=== PATIENT | male | born 1940 | race African-American/Black ===

== ENCOUNTER 2016-08-16 13:30 | Inpatient (IN) ==
--- NOTE | 2016-08-16 13:56 | Emergency Department Note ---
Pramod Giron Brooke, am scribing for, and in the presence of, Hayes Woods MD 13:46 . Peggy Giron James D, MD, personally performed the services described in this documentation, ascribed by Mckenzie Benavidez in my presence, and it is both accurate and complete [id number] . Arrival - Arrival Chief Complaint: Altered Mental Status ED Nursing Triage Note: c/o pt being confused since he woke up this am. pt has dementia Mode of Arrival: Stretcher Limitations: Altered Mental Status Source: Patient, EMS, RN Notes Reviewed Time Seen by Provider: 08/16/16 13:41 - History of Present Illness HPI Narrative: Patient is a 76 year old male brought into the ED by EMS with c/o altered mental status. Patient says he does not know why he is here. He knows his name and is able to recall his date. Patient says that the month is currently November and the year is 1996. EMS reports that says he has been confused all morning. The is supposed to be coming to the ED. Patient does not have any complaints. He denies having any abdominal pain or shortness of breath. Patient has PMHx of HTN and dementia. Home Medications: Home Medications Medication Instructions Recorded Confirmed Type Aspirin EC Tab 81 mg PO DAILY 08/16/16 08/16/16 History Carbidopa/Levodopa 25-250 [Sinemet 1 tablet PO TID PRN 08/16/16 08/16/16 History 25-250] Donepezil [Aricept] 10 mg PO DAILY 08/16/16 08/16/16 History Metoprolol Tartrate Tab [Lopressor 25 mg PO DAILY 08/16/16 08/16/16 History Tab] Ropinirole HCl 0.25 mg PO TID 08/16/16 08/16/16 History Review of System - Review of System ROS unobtainable: due to mental status - Review of System Constitutional: Absent: fever Respiratory: Absent: respiratory distress Gastrointestinal: Absent: abdominal pain Neurological: Present: confusion Medical,Surgical,& Family Hx - Medical History Cardio: History of: Hypertension Neurology: History of: Dementia, Parkinson's Disease - Social History Smoking Status: Never smoker Frequency of Alcohol Use: None Type of Drug Use: None Exam Vital Signs: Vital Signs Temperature 97.6 F 08/16/16 13:35 Pulse Rate 99 H 08/16/16 13:35 Respiratory Rate 18 08/16/16 13:35 Blood Pressure 154/83 08/16/16 13:35 O2 Sat by Pulse Oximetry 99 08/16/16 13:35 GENERAL: This is a chronically ill-appearing black male in no apparent distress. VITAL SIGNS: Reviewed HEENT: Head is atraumatic and normocephalic. Pupils are equal round react to light. Extraocular movements are intact. Oropharynx is benign with moist mucous membranes. NECK: Neck is soft and supple without tenderness. There are no masses. There is no lymphadenopathy. LUNGS: Lungs are clear to auscultation. Chest rises symmetrically. There is no chest wall tenderness. CV: Heart is regular rate and rhythm without murmurs rubs or gallops. ABDOMEN: Abdomen is soft, nontender to palpation. There are no abdominal abnormal masses palpated. There is no organomegaly. Bowel sounds are present and active. SKIN: Skin is warm and dry. No rash. EXTREMITIES: Patient has full range of motion without tenderness. There is no pedal edema. NEUROLOGIC: Awake, disoriented to time and place. Cranial nerves II through XII are grossly intact. Motor is 5 over 5 in all extremities bilaterally. Results - Labs CBC & BMP: 08/16/16 14:52 08/16/16 14:52 Lab Results: I have reviewed the patients labs - EKG EKG results: interpreted by ERMD - Impressions EKG: Normal sinus rhythm with rate of 63, nonspecific ST-T wave changes, normal axis. - Diagnostic Findings Procedure: Chest x-ray: image reviewed by me (No infiltrates, no pleural effusions.), CT: image reviewed by me (CT head: No acute intracranial lesion or hemorrhage.) Disposition Clinical Impression: Altered mental status Case discussed with: patient
--- NOTE | 2016-08-16 14:06 | CT Report ---
Referring physician: Hayes Woods Exam: CT brain without contrast Date: 08/16/2016 Comparison: 08/18/2010 Reason: Alteration of consciousness Technique: Axial images of the head were obtained without the use of contrast. Total DLP was 1053.4 mGy*cm. Findings: No hydrocephalus or midline shift is present. Cavum interpositum. There is no evidence of recent intracranial hemorrhage or abnormal mass effect. Progressive atrophy and cerebral hypodensities. It is difficult to exclude interval ischemic infarcts in the centrum semiovale location especially on the right. The osseous structures appear intact. The mastoid air cells and visualized paranasal sinuses are clear. Impression: Progressive atrophy and microvascular disease. These findings make it difficult to exclude interval infarcts in the centrum semiovale location especially on the right. The CT exam was performed using one or more of the following dose reduction techniques: Automated exposure control and adjustment of the mA and/or kV according to patient size. PROCEDURE INTERPRETED AT [facility] DEPARTMENT OF RADIOLOGY Final Report Signed by: Dr. Christine Ku
--- NOTE | 2016-08-16 14:10 | XRay Report ---
Exam: XR chest 1V portable Date: 08/16/2016 1:46 PM Indication: Altered mental status Comparison: 08/18/2010 Technical: AP portable Findings: Lateral marginal osteophytes are present. External cardiac leads are present. Mediastinum and bony structures reveal no acute findings. No obvious infiltrates or effusions. Impression: 1. Degenerative spondylosis change thoracic spine without acute cardiopulmonary pathology PROCEDURE INTERPRETED AT [facility] DEPARTMENT OF RADIOLOGY Final Report Signed by: Dr. Sea Noguera
--- NOTE | 2016-08-16 14:36 | EKG Report ---
Stationary ECG Study [facility] ER Test Date: 08/16/2016 1:52:51 PM Pat Name: [facility] Department: Room: Gender: M Pharmacy Delivery Driver: : 1940 Requested by: Hayes Valente Order Number: [id number] Reading MD: WILBUR ROCHE Intervals [place] Rate: 63 P: 68 OH: 138 QRS: 30 QRSD: 88 T: 7 QT: 420 QTc: 428 Interpretive Statements SINUS RHYTHM NONSPECIFIC T-WAVE ABNORMALITY Electronically Signed On 08-16-16 18:35:46 CDT by WILBUR ROCHE [email or web address]
[2016-08-16 15:05] LABS: Basophils % 0.1 % (0.0-0.8); Eosinophils % 0.1 % (0.00-10.9); Hematocrit 44.8 VOL% (42.0-52.0); Hemoglobin 15.1 GM/DL (14.0-18.0); Immature Granulocytes % 0.4 %; Immature Granulocytes Absolute 0.03 #; Lymphocytes # 1.2 10*3/uL (1.4-4.0); Mean Corpuscular HGB Conc 33.7 GM/DL (32-36); Mean Corpuscular Hemoglobin 32 PG (27-34); Mean Corpuscular Volume 93.9 FL (87-102); Mean Platelet Volume 10.3 FL (9.6-12.0); Monocytes # 0.5 10*3/uL (0.11-0.8); Monocytes % 7.4 % (1.7-12.7); Neutrophils # 5.1 10*3/uL (1.4-7.4); Platelet Count 139 T/CUMM (130-400); Red Blood Count 4.77 MC/CUMM (3.8-5.5); White Blood Count 6.9 T/CUMM (4-12)
[2016-08-16 15:10] LABS: Apearance,Urine CLEAR (Clear); Bilirubin,Urine Negative (Negative); Blood, Urine Moderate mg/dL (Negative); Glucose,Urine (UA) Negative (Negative); Ketones,Urine 5 mg/dL (Negative); Mucus,Urine Many /LPF (Occasional); Nitrite,Urine Negative (Negative); Protein,Urine Negative; RBC,Urine 7 /HPF (0-4); Squamous Epithelial Cell,Urine Occasional /HPF (0-10); Urine Color Yellow (Yellow); Urine Specific Gravity 1.019 (1.001-1.035); Urine Urobilinogen < 2.0 EU/DL (0.2-1.0); WBC,Urine <1 /HPF (0-6)
[2016-08-16 15:15] LABS: INR 1.1; PT Patient Result 12.2 SECS; Partial Thromboplastin Time 26.8 SECS (0-40)
[2016-08-16 15:41] LABS: Alanine Aminotransferase < 6 U/L (16-61); Albumin 3.7 G/DL (3.4-5.0); Alkaline Phosphatase 76 U/L (45-117); Aspartate Amino Transferase 16 U/L (0-37); Blood Urea Nitrogen 11 MG/DL (7-18); Calcium 8.5 MG/DL (8.5-10.1); Glucose 111 MG/DL (74-106); Osmolality,Calculated 282.1 MOS/KG (273-304); Potassium 3.8 MMOL/L (3.5-5.1); Sodium 142 MMOL/L (136-145); Total Protein 6.8 G/DL (6.4-8.3)
--- NOTE | 2016-08-16 16:26 | Event Note ---
Mr. olson is a 76-year-old male with dementia who presents with altered mental status. Patient's workup has been negative thus far. Will admit him to observation and obtain an MRI of his brain. Patient has no weakness however will consult PT and social work.
--- NOTE | 2016-08-16 16:40 | Hospitalist History & Physical ---
Assessment and Plan (1) Altered mental status Status: Acute Assessment and plan: We will admit. Start fluids, monitor blood pressure, and obtain MRI in AM. Current Visit: Yes History of Present Illness Chief complaint: altered mental status History of present illness: This is a very poor and unfortunate 76 chronically ill 76 year old male that presented to the ED at [facility] this afternoon for evaluation of altered mental status. He has a medical condition significant for hypertension, Parkinson's disease and dementia. The patient is altered at the time of interview; his is at bedside to serve as historian. Apparently, the notice the change in mental status this morning during breakfast when he refused his meal. She reports that he in normally verbal and appropriate for the most part. She reports that he became non-verbal and began "staring into space" when she talked to him. She felt that the changes were acute and she brought him to the ED for further evaluation. At the time of ED presentation, he remained altered; however more verbal. When asked about current location; he states that he in in "[place]". Labs were obtained which were essentially unremarkable. CT head showed no acute intracrainal processes. After brief discussion with Dr. Woods and Dr. Quiñonez, the patient will be admitted to the hospitalist service for further evaluation. Home Medications Medication Instructions Recorded Confirmed Type Aspirin EC Tab 81 mg PO DAILY 08/16/16 08/16/16 History Carbidopa/Levodopa 25-250 [Sinemet 1 tablet PO TID PRN 08/16/16 08/16/16 History 25-250] Donepezil [Aricept] 10 mg PO DAILY 08/16/16 08/16/16 History Metoprolol Tartrate Tab [Lopressor 25 mg PO DAILY 08/16/16 08/16/16 History Tab] Ropinirole HCl 0.25 mg PO TID 08/16/16 08/16/16 History Medical,Surgical,& Family Hx - Medical History Cardio: History of: Hypertension Neurology: History of: Dementia, Parkinson's Disease - Social History Smoking Status: Never smoker Frequency of Alcohol Use: None Type of Drug Use: None ROS unobtainable: due to mental status Exam - Constitutional Vitals: Period Temp Pulse Resp BP Sys/Jreez Pulse Ox Last 24 Hr 97.6 F-97.6 F 99-99 18-20 154-154/83-83 99 General appearance: normal weight, no acute distress - Head Head exam: Present: normal inspection, normocephalic, atraumatic - Eye Eye exam: Present: EOMI. Absent: conjunctival injection, nystagmus Pupils: Present: NAHOMY, normal accommodation - ENT ENT exam: Present: normal exam, normal external ear exam, normal oropharynx - Neck Neck exam: Present: normal inspection. Absent: lymphadenopathy, meningismus, tenderness, thyromegaly - Respiratory Respiratory exam: Present: clear to auscultation bilaterally. Absent: rales, rhonchi, stridor, wheezes - Cardiovascular Cardiovascular exam: Present: regular rate and rhythm. Absent: carotid bruit, diastolic murmur, gallop, JVD, rubs, systolic murmur - GI/Abdominal GI/Abdominal exam: Present: normal bowel sounds, soft. Absent: firm, guarding, tenderness - Extremities Exam Extremities exam: Present: normal inspection, normal capillary refill, full ROM - Back Exam Back exam: Present: normal inspection - Neurological Exam Neurological exam: Present: altered (oriented to self only), other (fine tremors noted) - Psychiatric Psychiatric exam: Present: flat affect - Skin Skin exam: Present: normal color, warm, dry Results - Labs CBC & BMP: 08/16/16 14:52 08/16/16 14:52 Lab Results: I have reviewed the past 24 hour labs
[2016-08-16] MEDS ORDERED: ACETAMINOPHEN 325 MG TABLET PO PRN (18:55)
[2016-08-16] MEDS ORDERED: ONDANSETRON 4 MG/2 ML VIAL IV PRN (18:55)
[2016-08-16] MEDS: SODIUM CHLORIDE 0.9% 1,000 ML IV SCH (19:50)
--- NOTE | 2016-08-16 21:23 | Ultrasound Report ---
Carotid artery ultrasound Indication: Altered mental status Comparison: None available Color Doppler flow and spectral analysis was performed. Findings: Minimal amount of atherosclerotic plaque is present in both proximal internal carotid arteries. The peak systolic velocity in the right is 66 cm/s . Ratio of flow is 0.54. The peak systolic velocity in the left is 63 cm/s . Ratio of flow is 0.67 Bilateral antegrade vertebral flow is seen. Impression: No evidence of hemodynamically significant stenosis is seen, 0-49% estimated stenosis. Consensus conference on the carotid ultrasound criteria used. Ultrasound images were captured and stored. PROCEDURE INTERPRETED AT [facility] DEPARTMENT OF RADIOLOGY Final Report Signed by: Dr. Alvarez Lopez
[2016-08-16] MEDS: CARBIDOPA/LEVODOPA 25-250 MG TABLET PO SCH (21:36)
[2016-08-16] MEDS: rOPINIRole 0.25 MG TABLET PO SCH (21:36)
[2016-08-17] MEDS: hydrALAZINE 20 MG/1 ML VIAL IV PRN ×2 (01:38→09:05)
[2016-08-17] MEDS: SODIUM CHLORIDE 0.9% 1,000 ML IV SCH (04:00)
[2016-08-17 07:24] LABS: Basophils % 0.3 % (0.0-0.8); Eosinophils % 0.7 % (0.00-10.9); Hematocrit 44.4 VOL% (42.0-52.0); Immature Granulocytes % 0.2 %; Immature Granulocytes Absolute 0.01 #; Lymphocytes # 1.6 10*3/uL (1.4-4.0); Lymphocytes % 26.9 % (21.2-54.2); Mean Corpuscular HGB Conc 33.8 GM/DL (32-36); Mean Corpuscular Hemoglobin 31 PG (27-34); Mean Corpuscular Volume 92.9 FL (87-102); Mean Platelet Volume 11.5 FL (9.6-12.0); Monocytes # 0.6 10*3/uL (0.11-0.8); Monocytes % 9.6 % (1.7-12.7); Neutrophils # 3.8 10*3/uL (1.4-7.4); Neutrophils % 62.3 % (38.7-73.9); Platelet Count 124 T/CUMM (130-400); Red Blood Count 4.78 MC/CUMM (3.8-5.5); Red Cell Distribution Width 13.9 % (9.3-17.3)
[2016-08-17 07:56] LABS: Alanine Aminotransferase < 6 U/L (16-61); Albumin 3.4 G/DL (3.4-5.0); Alkaline Phosphatase 67 U/L (45-117); Aspartate Amino Transferase 18 U/L (0-37); Blood Urea Nitrogen 8 MG/DL (7-18); Calcium 8.6 MG/DL (8.5-10.1); Cholesterol 164 MG/DL (50-200); Glucose 78 MG/DL (74-106); HDL Cholesterol 77 MG/DL (40-60); Magnesium 2.2 MG/DL (1.8-2.4); Osmolality,Calculated 282.8 MOS/KG (273-304); Potassium 4.4 MMOL/L (3.5-5.1); Risk Ratio 2.13; Sodium 144 MMOL/L (136-145); Total Protein 6.4 G/DL (6.4-8.3); Triglycerides 69 MG/DL (2-150); VLDL CHOLESTEROL 13.8 MG/DL
[2016-08-17] MEDS: CARBIDOPA/LEVODOPA 25-250 MG TABLET PO SCH ×3 (09:05→20:59)
[2016-08-17] MEDS: DONEPEZIL 10 MG TABLET PO SCH (09:05)
[2016-08-17] MEDS: PANTOPRAZOLE 40 MG TABLET PO SCH (09:05)
[2016-08-17] MEDS: rOPINIRole 0.25 MG TABLET PO SCH ×3 (09:05→20:59)
[2016-08-17] MEDS: METOPROLOL TARTRATE 25 MG TABLET PO SCH (09:05)
[2016-08-17] MEDS: ASPIRIN EC 81 MG TABLET PO SCH (09:05)
[2016-08-17] MEDS ORDERED: LORazepam 2 MG/1 ML VIAL IV ONE (14:30)
--- NOTE | 2016-08-17 15:22 | Hospitalist Progress Note ---
<Aleyda Wooten - Last Filed: 08/17/16 15:20> Assessment and Plan - Time spent with patient Time spent with patient: Less than 30 minutes (1) Parkinsons disease Status: Acute Assessment and plan: Mr. olson is a 76-year-old -[place] male with history of Parkinson's dementia and hypertension admitted by hospitalist service with altered mental status. Patient's chest x-ray, CT the head, and urine are all negative. Patient is scheduled to undergo MRI of the brain at [address] Blackmon will see and examine the patient and further recs to follow. Hypertension--patient's home medicine of metoprolol has been restarted and he has Apresoline as needed ordered. His blood pressures are stable at this time. Parkinson's/dementia--patient is on carbidopa/levodopa, Aricept and Requip for home meds and these have been restarted. Altered mental status--MRI is pending Current Visit: Yes (2) Dementia Status: Acute Current Visit: Yes (3) Hypertension Status: Acute Current Visit: Yes (4) Altered mental status Status: Acute Current Visit: Yes Hospitalist: Subjective Interval history: Patient lying comfortably in bed. His daughter is present. Patient and daughter both think that he is better than he was yesterday but he still not back at baseline. MRI is scheduled for 330. He has no complaints otherwise. Exam - Constitutional Vitals: Period Temp Pulse Resp BP Sys/Jerez Pulse Ox Last 24 Hr 97.3 F-97.8 F 49-70 15-24 112-193/62-114 93-100 Exam: 76-year-old -[place] male, no acute distress, alert though somewhat confused Chest clear CV regular rate and rhythm Abdomen soft and nontender Extremities with no edema Results - Labs CBC & BMP: 08/17/16 06:33 08/17/16 06:33 Lab Results: I have reviewed the past 24 hour labs - Diagnostic Findings Procedure: Ultrasound: report reviewed by me (Carotid Doppler showed no evidence of hemodynamically significant stenosis) Quality Measures - VTE Contraindication to Pharmacological VTE Prophylaxis: High Risk of Bleeding <Tasha Blackmon - Last Filed: 08/17/16 19:41> Hospitalist: Subjective Interval history: Patient seen. No new issues. Plan Will dc IVF BMP, CBC yamile Exam - Constitutional Vitals: Period Temp Pulse Resp BP Sys/Jerez Pulse Ox Last 24 Hr 97.3 F-97.8 F 50-70 19-22 112-190/62-114 93-100 Results - Labs CBC & BMP: 08/17/16 06:33 08/17/16 06:33
--- NOTE | 2016-08-17 16:33 | Magnetic Resonance Report ---
Exam: MR head/brain wo con Date: 08/17/2016 1:59 PM Comparison: 12/04/2008, CT brain 08/16/2016 Indication: Alteration of consciousness, dementia, Parkinson's Technique:[Multiple acquisitions were obtained including sagittal T1, coronal T2, and axial ADC, diffusion, FLAIR, T2, GRE, and T1 scans without contrast only. Scans were obtained on a 1.5 Lizet magnet.] Findings: Motion artifact. The ventricles remain normal in size with no midline displacement. Cavum interpositum. The pituitary has a normal appearance and the cerebellar tonsils are normal in their location. No acute infarction is identified on the diffusion scans. Progressive cerebral atrophy and FLAIR/T2 hyperintensities. No evidence of hemorrhage, mass, or extracerebral collection. No acute findings in the paranasal sinuses, orbits, temporal bones, or [place]. Impression: Motion artifact with no acute infarction. Progressive atrophy and minimal microvascular disease. PROCEDURE INTERPRETED AT [facility] DEPARTMENT OF RADIOLOGY Final Report Signed by: Dr. Christine Ku
[2016-08-18 05:08] LABS: Basophils % 0.3 % (0.0-0.8); Eosinophils % 0.6 % (0.00-10.9); Hematocrit 43.6 VOL% (42.0-52.0); Hemoglobin 14.4 GM/DL (14.0-18.0); Immature Granulocytes % 0.3 %; Immature Granulocytes Absolute 0.02 #; Lymphocytes # 1.7 10*3/uL (1.4-4.0); Lymphocytes % 26.5 % (21.2-54.2); Mean Corpuscular Hemoglobin 31 PG (27-34); Mean Corpuscular Volume 93.2 FL (87-102); Mean Platelet Volume 11.3 FL (9.6-12.0); Monocytes # 0.6 10*3/uL (0.11-0.8); Monocytes % 9.2 % (1.7-12.7); Neutrophils % 63.1 % (38.7-73.9); Platelet Count 137 T/CUMM (130-400); Red Blood Count 4.68 MC/CUMM (3.8-5.5); Red Cell Distribution Width 14.2 % (9.3-17.3); White Blood Count 6.3 T/CUMM (4-12)
[2016-08-18 05:35] LABS: Calcium 8.4 MG/DL (8.5-10.1); Osmolality,Calculated 279.1 MOS/KG (273-304); Potassium 3.7 MMOL/L (3.5-5.1)
--- NOTE | 2016-08-18 07:25 | Discharge Summary ---
<Amber Danielsonda - Last Filed: 08/18/16 07:32> Hospital Course - Hospital Course Hospital Course: This is a very poor and unfortunate 76 chronically ill 76 year old male that presented to the ED at [facility] on 08/16 for evaluation of altered mental status. He has a medical condition significant for hypertension, Parkinson's disease and dementia. The patient is altered at the time of interview; his is at bedside to serve as historian. Apparently, the notice the change in mental status on the morning of presentation during breakfast when he refused his meal. She reported that he in normally verbal and appropriate for the most part. She reported that he became non- verbal and began "staring into space" when she talked to him. She felt that the changes were acute and she brought him to the ED for further evaluation. At the time of ED presentation, he remained altered; however more verbal. When asked about current location; he stated that he in in "[place]". Labs were obtained which were essentially unremarkable. CT head showed no acute intracrainal processes. After brief discussion with Dr. Woods and Dr. Quiñonez, the patient will be admitted to the hospitalist service for further evaluation. Additional diagnostic testing was performed during the clinical encounter. On , MRI brain was performed which was revealed progressive atrophy and minimal microvascular disease. Carotid dopplers on 08/16 revealed minimal plaque formation bilaterally. Urine cultures were essentially unremarkable. His condition is stable. He has not experienced any significant overnight events. Today, we feel that he is indeed appropriate for discharge home to follow-up with his PCP as directed. Diagnosis - Discharge Diagnosis (1) Altered mental status Status: Acute Discharge Plan - Discharge Medications No Action Donepezil [Aricept] 10 mg PO DAILY Ropinirole HCl 0.25 mg PO TID Metoprolol Tartrate Tab [Lopressor Tab] 25 mg PO DAILY Aspirin EC Tab 81 mg PO DAILY Carbidopa/Levodopa 25-250 [Sinemet 25-250] 1 tablet PO TID PRN PRN Reason: Parkinsonism - Follow Up or Referral - Forms/Instructions Exam - Constitutional Vitals: Period Temp Pulse Resp BP Sys/Jerez Pulse Ox Last 24 Hr 98.2 F-98.4 F 59-78 16-18 134-160/79-84 96-100 Discharge Results Procedures and tests throughout hospitalization: Pending Orders 08/18/16 07:43 Blood Culture Stat Labs on day of discharge: Labs from last 24 hours 08/18/16 08/18/16 08/18/16 08:28 04:08 04:08 WBC 6.3 RBC 4.68 Hgb 14.4 Hct 43.6 MCV 93.2 MCH 31 MCHC 33.0 RDW 14.2 Plt Count 137 MPV 11.3 Neut % (Auto) 63.1 Lymph % (Auto) 26.5 [place] % (Auto) 9.2 Eos % (Auto) 0.6 Baso % (Auto) 0.3 Neut # (Auto) 4.0 Lymph # (Auto) 1.7 [place] # (Auto) 0.6 Eos # (Auto) 0.0 Baso # (Auto) 0.0 Immature Gran % 0.3 Nucleated RBC % 0.0 Immature Gran # 0.02 Nucleated RBCs # 0.00 Sodium 142 Potassium 3.7 Chloride 107 Carbon Dioxide 28 Anion Gap 10.7 BUN 7 Creatinine 1.00 GFR Calculation 90 BUN/Creatinine Ratio 7.00 Glucose 78 POC Glucose 80 Calculated Osmolality 279.1 Calcium 8.4 L DS: Provider Date of admission: 08/16/16 15:55 Primary care physician: . No PCP Attending physician on admission: Hailee Ash MD Consults: 08/16/16 19:55 Consult to Case Mgmt/Social Srvs [CONS] Routine Reason for Case Mgmt/Social Srvs: Discharge Planning Consult Comment: [place]-psych eval Consult to Occupational Therapy [CONS] Routine Reason for Occupational Therapy: Evaluate and Treat Consult to Physical Therapy [CONS] Routine Reason for Physical Therapy: Evaluate and Treat 08/17/16 16:19 Consult to Case Mgmt/Social Srvs [CONS] Routine Reason for Case Mgmt/Social Srvs: Rehab 08/18/16 10:14 Consult to Case Mgmt/Social Srvs [CONS] Routine Reason for Case Mgmt/Social Srvs: Home Health Consult Comment: with PT Discharging clinician: Saniya Danielson CNP <Tasha Blackmon - Last Filed: 08/18/16 12:19> Hospital Course - Hospital Course Hospital Course: Patient will have Home health and the disease case manager rn is working on organizing for him to be taken to the Day care about thrice a week from home inorder to give his some breaks. - Time spent with patient Time with patient DS: Greater than 30 minutes (Time spent: 35mins)
[2016-08-18 11:42] VITALS: BP 134/84
[2016-08-18] MEDS: CARBIDOPA/LEVODOPA 25-250 MG TABLET PO SCH (12:27)
[2016-08-18] MEDS: rOPINIRole 0.25 MG TABLET PO SCH (12:27)
[2016-08-18] MEDS: METOPROLOL TARTRATE 25 MG TABLET PO SCH (12:27)
[2016-08-18] MEDS: DONEPEZIL 10 MG TABLET PO SCH (12:27)
[2016-08-18] MEDS: ASPIRIN EC 81 MG TABLET PO SCH (12:27)
[2016-08-18] MEDS: PANTOPRAZOLE 40 MG TABLET PO SCH (12:27)
[2016-08-18] MEDS: SODIUM CHLORIDE 0.9% 1,000 ML IV SCH (12:32)
== END 2016-08-18 13:25 | disposition home health service (06) | DRG 57 ==
LOC: EDUNIT# → EDBD → N.ED 13:30 → SUATTDRO 15:55 → N.EDINP 15:55 → N.5E 18:01
PROVIDERS: ADMIT Internal Medicine; ATTEND Internal Medicine

== ENCOUNTER 2017-11-07 13:55 | Inpatient (IN) ==
[2017-11-07 15:00] LABS: Basophils % 0.3 % (0.0-0.8); Eosinophils % 0.5 % (0.00-10.9); Hematocrit 39.2 VOL% (42.0-52.0); Hemoglobin 13.3 GM/DL (14.0-18.0); Immature Granulocytes % 0.5 %; Immature Granulocytes Absolute 0.03 #; Lymphocytes # 1.2 10*3/uL (1.4-4.0); Lymphocytes % 18.7 % (21.2-54.2); Mean Corpuscular HGB Conc 33.9 GM/DL (32-36); Mean Corpuscular Hemoglobin 32 PG (27-34); Mean Corpuscular Volume 93.6 FL (87-102); Monocytes # 0.4 10*3/uL (0.11-0.8); Monocytes % 6.5 % (1.7-12.7); Neutrophils # 4.7 10*3/uL (1.4-7.4); Neutrophils % 73.5 % (38.7-73.9); Platelet Count 167 T/CUMM (130-400); Red Blood Count 4.19 MC/CUMM (3.8-5.5); Red Cell Distribution Width 14.2 % (9.3-17.3); White Blood Count 6.3 T/CUMM (4-12)
[2017-11-07 15:14] LABS: PT Patient Result 10.6 SECS
[2017-11-07 15:23] LABS: Alanine Aminotransferase 11 U/L (16-61); Albumin 3.4 G/DL (3.4-5.0); Alkaline Phosphatase 73 U/L (45-117); Aspartate Amino Transferase 17 U/L (0-37); Blood Urea Nitrogen 18 MG/DL (7-18); Calcium 8.5 MG/DL (8.5-10.1); Glucose 124 MG/DL (74-106); Osmolality,Calculated 288.8 MOS/KG (273-304); Potassium 3.6 MMOL/L (3.5-5.1); Sodium 144 MMOL/L (136-145); Total Protein 6.7 G/DL (6.4-8.3)
[2017-11-07] MEDS ORDERED: ONDANSETRON 4 MG/2 ML VIAL IV PRN (15:56)
[2017-11-07] MEDS ORDERED: LACTULOSE 20 GM/30 ML UDCUP PO PRN (15:56)
[2017-11-07] MEDS ORDERED: ACETAMINOPHEN 325 MG TABLET PO PRN (15:56)
[2017-11-07 15:58] LABS: Apearance,Urine Slightly Hazy (Clear); Bilirubin,Urine Negative (Negative); Blood, Urine Small mg/dL (Negative); Glucose,Urine (UA) Negative (Negative); Hyaline Casts,Urine 14 /LPF (0-3); Ketones,Urine 5 mg/dL (Negative); Mucus,Urine Occasional /LPF (Occasional); Nitrite,Urine Negative (Negative); Protein,Urine 30 MG/DL; RBC,Urine 3 /HPF (0-4); Urine Color Yellow (Yellow); Urine Specific Gravity 1.015 (1.001-1.035); WBC,Urine 3 /HPF (0-6)
[2017-11-07] MEDS: SODIUM CHLORIDE 0.9% 1,000 ML IV SCH ×2 (18:48)
[2017-11-07] MEDS: CARBIDOPA/LEVODOPA 25-100 MG TABLET PO SCH (21:27)
[2017-11-07] MEDS: DOCUSATE SODIUM 100 MG CAPSULE PO SCH (21:27)
[2017-11-08] MEDS: CARBIDOPA/LEVODOPA 25-100 MG TABLET PO SCH ×4 (06:26→19:03)
[2017-11-08 07:09] LABS: Calcium 9.1 MG/DL (8.5-10.1); Osmolality,Calculated 285.8 MOS/KG (273-304); Potassium 3.6 MMOL/L (3.5-5.1)
[2017-11-08] MEDS: ASPIRIN EC 81 MG TABLET PO SCH (10:03)
[2017-11-08] MEDS: DOCUSATE SODIUM 100 MG CAPSULE PO SCH ×2 (10:03→21:02)
[2017-11-08] MEDS: SODIUM CHLORIDE 0.9% 1,000 ML IV SCH ×2 (14:32→14:33)
[2017-11-08] MEDS: levETIRAcetam 500 MG TABLET PO SCH (21:02)
[2017-11-09] MEDS: SODIUM CHLORIDE 0.9% 1,000 ML IV SCH ×2 (00:46→09:55)
[2017-11-09] MEDS: CARBIDOPA/LEVODOPA 25-100 MG TABLET PO SCH ×3 (07:07→16:04)
[2017-11-09] MEDS: DOCUSATE SODIUM 100 MG CAPSULE PO SCH (09:55)
[2017-11-09] MEDS: ASPIRIN EC 81 MG TABLET PO SCH (09:55)
[2017-11-09] MEDS: levETIRAcetam 500 MG TABLET PO SCH (09:55)
[2017-11-09 15:04] VITALS: BP 153/93
[2017-11-09] MEDS ORDERED: RIVASTIGMINE 1.5 MG CAPSULE PO SCH (17:00)
== END 2017-11-09 17:10 | disposition home or self-care (01) | DRG 101 ==
LOC: EDUNIT# → EDBD → N.ED 13:55 → N.EDINP 15:57 → N.5E 18:23
PROVIDERS: ADMIT Internal Medicine; ATTEND Internal Medicine